=== PATIENT | female | born 1960 | race African-American/Black ===

== ENCOUNTER 2020-07-11 10:38 | Inpatient (IN) | payer MEDICAID, OTHER ==
[~2020-07-11] VITALS: Ht 167.6 cm; Wt 102.1 kg
[2020-07-11 11:12] LABS: Basophils # (auto) 0.1 10 ^3/uL (0-0.2); Basophils % (auto) 0.7 % (0.0-2.0); Eosinophils # (auto) 0.2 10 ^3/uL (0-0.8); Eosinophils % (auto) 1.3 % (0.0-7.0); Hematocrit 46.8 % (36.0-46.0); Hemoglobin 15.6 g/dL (12.2-16.2); Lymphocytes # (auto) 2.7 10 ^3/uL (0.4-5.4); Lymphocytes % (auto) 17.3 % (10.0-50.0); Mean Corpuscular Hemoglobin 30.3 pg (28.0-32.0); Mean Corpuscular Hgb Conc. 33.2 g/dL (32.0-36.0); Mean Corpuscular Volume 91.1 fL (80.0-100.0); Monocytes # (auto) 0.7 10 ^3/uL (0-1.3); Monocytes % (auto) 4.3 % (0.0-12.0); Neutrophils # (auto) 11.9 10 ^3/uL (1.6-8.6); Neutrophils % (auto) 76.4 % (37.0-80.0); Nucleated Red Blood Cells % 0.1 %; Platelet Count (auto) 222 10^3/uL (140-450); Red Blood Cells 5.14 10^6/uL (4.0-5.20); White Blood Cell 15.5 10^3/uL (4.4-10.8)
[2020-07-11] MEDS ORDERED: hydrALAZINE HCL 20 MG/ML VL IV ONE (11:15)
[2020-07-11 11:27] LABS: Calcium 9.4 mg/dL (8.5-10.1); Potassium 3.8 mmol/L (3.5-5.1)
[2020-07-11] MEDS ORDERED: ONDANSETRON HCL 4 MG/2 ML VIAL IV ONE (11:30)
[2020-07-11] MEDS ORDERED: MORPHINE SULFATE 4 MG/ML SYR/VIAL IV ONE (11:30)
[2020-07-11 11:32] LABS: BUN/Creatinine Ratio 9.1; Bilirubin, Total 0.6 mg/dL (0.2-1.0); Total Protein 8.4 g/dL (6.4-8.2)
[2020-07-11] MEDS ORDERED: ASPirin 81 mg TAB PO ONE (13:30)
[2020-07-11] MEDS ORDERED: ENOXAPARIN SOD 100 MG/1 ML SYRINGE SC ONE (13:30)
[2020-07-11] MEDS ORDERED: NITROGLYCERIN 0.4 MG SL TAB SL PRN (14:00)
[2020-07-11] MEDS ORDERED: MORPHINE SULF INJ 2 MG/ML SYRINGE 1ML IV PRN (14:00)
[2020-07-11] MEDS ORDERED: ONDANSETRON HCL 4 MG/2 ML VIAL IV PRN (14:00)
[2020-07-11] MEDS ORDERED: ACETAMINOPHEN 325 MG TAB PO PRN (14:00)
[2020-07-11] MEDS ORDERED: traMADol HCL 50 MG TAB PO PRN (14:00)
[2020-07-11 14:09] LABS: Urine Bacteria NONE SEEN /hpf (None Seen); Urine Blood Negative /uL (Negative); Urine Specific Gravity 1.016 (1.001-1.035); Urine WBC <1 /hpf (0 - 5)
[2020-07-11 14:18] LABS: Alcohol, Urine < 3.0 mg/dL (0-10); Amphetamine Screen, Urine NEGATIVE (NEGATIVE); Barbiturate Scree,Urine NEGATIVE (NEGATIVE); Benzodiazephine Screen, Urine NEGATIVE (NEGATIVE); Cannabinoid Screen, Urine POSITIVE (NEGATIVE); Cocaine Screen, Urine NEGATIVE (NEGATIVE); Opiate Scree,Urine POSITIVE (NEGATIVE); Phencyclidine Screen, Urine NEGATIVE (NEGATIVE)
[2020-07-11 15:09] LABS: Cholesterol 245 mg/dL (< 200)
[2020-07-11 15:11] LABS: HDL Cholesterol 51 mg/dL (40-59); LDL Cholesterol 168 mg/dL (< 100); Triglycerides 145 mg/dL (< 150)
[2020-07-11] MEDS ORDERED: DEXTROSE (50%) 50ML SYRG IV PRN (17:45)
[2020-07-11] MEDS: InsuLIN REG 1unit/0.01ml Soln (100units/ml) SC SCH (21:20)
[2020-07-11] MEDS: ACCU-CHEK COMFORT CURVE STRIP VI SCH (21:20)
[2020-07-11 22:00] VITALS: BP 126/82
[2020-07-11] MEDS: METOPROLOL TARTRATE 25 MG TAB PO SCH (22:45)
[2020-07-11] MEDS: ATORVASTATIN 20 MG TAB PO SCH (22:45)
[2020-07-12 05:00] VITALS: BP 125/91
[2020-07-12] MEDS: InsuLIN REG 1unit/0.01ml Soln (100units/ml) SC SCH ×4 (06:10→21:49)
[2020-07-12] MEDS: ACCU-CHEK COMFORT CURVE STRIP VI SCH ×4 (06:10→21:49)
[2020-07-12 07:34] LABS: Basophils # (auto) 0.1 10 ^3/uL (0-0.2); Basophils % (auto) 0.5 % (0.0-2.0); Eosinophils # (auto) 0.3 10 ^3/uL (0-0.8); Eosinophils % (auto) 2.3 % (0.0-7.0); Hematocrit 42.5 % (36.0-46.0); Hemoglobin 14.1 g/dL (12.2-16.2); Lymphocytes # (auto) 3.8 10 ^3/uL (0.4-5.4); Lymphocytes % (auto) 32.3 % (10.0-50.0); Mean Corpuscular Hemoglobin 30.2 pg (28.0-32.0); Mean Corpuscular Hgb Conc. 33.3 g/dL (32.0-36.0); Mean Corpuscular Volume 90.7 fL (80.0-100.0); Monocytes # (auto) 0.7 10 ^3/uL (0-1.3); Monocytes % (auto) 5.8 % (0.0-12.0); Neutrophils # (auto) 6.9 10 ^3/uL (1.6-8.6); Neutrophils % (auto) 59.1 % (37.0-80.0); Platelet Count (auto) 202 10^3/uL (140-450); Red Blood Cells 4.68 10^6/uL (4.0-5.20); White Blood Cell 11.6 10^3/uL (4.4-10.8)
[2020-07-12 07:38] LABS: Albumin 3.2 g/dL (3.4-5.0); Calcium 8.5 mg/dL (8.5-10.1); Potassium 3.7 mmol/L (3.5-5.1)
[2020-07-12 07:40] LABS: BUN/Creatinine Ratio 12.7
[2020-07-12 07:48] LABS: Bilirubin, Total 0.6 mg/dL (0.2-1.0)
[2020-07-12] MEDS ORDERED: IOHEXOL 350 MG/ML 100ML IJ ONE ×2 (07:58→08:30)
[2020-07-12 08:00] VITALS: BP 122/72
[2020-07-12] MEDS ORDERED: ADENOSINE 86 MG in GIVE UN-DILUTED 0 ML IV STA (08:31)
[2020-07-12 08:33] VITALS: BP 122/72
[2020-07-12] MEDS: METOPROLOL TARTRATE 25 MG TAB PO SCH ×2 (10:00→21:48)
[2020-07-12] MEDS: ENOXAPARIN SOD 40 MG/0.4 ML SYRINGE SC SCH (10:00)
[2020-07-12] MEDS: ASPirin 81 mg TAB PO SCH (10:00)
[2020-07-12 13:00] VITALS: BP 154/78
[2020-07-12 17:09] VITALS: BP 163/92
[2020-07-12] MEDS: ATORVASTATIN 20 MG TAB PO SCH (21:48)
[2020-07-12 22:00] VITALS: BP 99/65
[2020-07-13 05:00] VITALS: BP 134/77
[2020-07-13] MEDS: ACCU-CHEK COMFORT CURVE STRIP VI SCH (06:32)
[2020-07-13] MEDS: InsuLIN REG 1unit/0.01ml Soln (100units/ml) SC SCH (06:33)
[2020-07-13 08:00] VITALS: BP 122/82
[2020-07-13 08:52] VITALS: BP 122/82
[2020-07-13] MEDS: ASPirin 81 mg TAB PO SCH (10:09)
[2020-07-13] MEDS: ENOXAPARIN SOD 40 MG/0.4 ML SYRINGE SC SCH (10:09)
[2020-07-13] MEDS: METOPROLOL TARTRATE 25 MG TAB PO SCH (10:09)
== END 2020-07-13 11:20 | disposition home or self-care (01) | DRG 198 ==
LOC: EDBD 10:38 → ER 10:38 → TELE 13:59 → TELE-CENTR 15:10
PROVIDERS: ADMIT Internal Medicine; ATTEND Family Medicine
DX: I24.9 Acute ischemic heart disease, unspecified (principal); E11.40 Type 2 diabetes mellitus with diabetic neuropathy, unspecified; I67.2 Cerebral atherosclerosis; I16.1 Hypertensive emergency; D72.829 Elevated white blood cell count, unspecified; E66.9 Obesity, unspecified; E78.5 Hyperlipidemia, unspecified; F32.9 Major depressive disorder, single episode, unspecified; I25.10 Atherosclerotic heart disease of native coronary artery without angina pectoris; Z20.822 Contact with and (suspected) exposure to COVID-19; R55 Syncope and collapse; J44.9 Chronic obstructive pulmonary disease, unspecified; F12.90 Cannabis use, unspecified, uncomplicated; I10 Essential (primary) hypertension; G89.29 Other chronic pain; H53.8 Other visual disturbances; M54.2 Cervicalgia; M25.511 Pain in right shoulder; Z68.36 Body mass index [BMI] 36.0-36.9, adult; Z95.5 Presence of coronary angioplasty implant and graft; Z86.73 Personal history of transient ischemic attack (TIA), and cerebral infarction without residual deficits; Z87.891 Personal history of nicotine dependence
CPT/HCPCS: 36415; 70450; 71045; 71275; 78452; 80053; 80061; 80307; 81001; 82962; 83036; 84484; 85025; 85379; 87040; 87426; 93005; 93017; 93306; 93886; 96374; 96375; 99291; G0378; J0153; J2405

== ENCOUNTER 2020-09-15 13:01 | Emergency (ER) | payer MEDICAID, OTHER ==
[~2020-09-15] VITALS: Ht 162.6 cm; Wt 99.8 kg
[2020-09-15] MEDS ORDERED: IOHEXOL 300 MG/ML 100ML BOTTLE IJ ONE (13:33)
[2020-09-15 14:24] VITALS: BP 135/84
[2020-09-15] MEDS ORDERED: SILVER SULFADIAZINE 1 % TOPICAL CREAM 50GM TOP ONE (14:30)
== END 2020-09-15 16:07 | disposition home or self-care (01) ==
LOC: ER 13:01 → EDBD 13:01 → ER 16:07
DX: S16.1XXA Strain of muscle, fascia and tendon at neck level, initial encounter (principal); E11.9 Type 2 diabetes mellitus without complications; I10 Essential (primary) hypertension; M79.18 Myalgia, other site; Z86.73 Personal history of transient ischemic attack (TIA), and cerebral infarction without residual deficits; V43.52XA Car driver injured in collision with other type car in traffic accident, initial encounter; Y93.89 Activity, other specified; Y92.89 Other specified places as the place of occurrence of the external cause; Y99.8 Other external cause status
CPT/HCPCS: 70450; 71250; 72125; 74177; 99285; Q9967